=== PATIENT | male | born 1940 | race Caucasian/White ===

== ENCOUNTER → 2020-07-15 07:45 | Outpatient (CLI) | payer MEDICARE, SELFPAY ==
--- NOTE | ~2020-07-15 | CT_ITS ---
EXAMINATION: CT abdomen pelvis wo con DATE: 07/15/2020 08:15 INDICATION: Bilateral kidney stones. Bilateral flank pain. TECHNIQUE: Computed tomography (CT) of the abdomen and pelvis was performed without intravenous contr ast. Automated exposure control and iterative reconstruction technique were employed. The dose-length product was 826.72 mGy-cm. COMPARISON: CT abdomen and pelvis 03/27/2019 FINDINGS: The visualized portions of the lung bases demonstrate mild atelectasis. No pleural effusion . The heart size is normal. There are coronary artery calcifications. No pericardial effusion. The li oh is normal. There are gallstones in the gallbladder, which is distended. The spleen, pancreas, adr enal glands, and right kidney are normal. There is a 10 mm stone in left kidney. The ureters are norm al. The prostate is moderately enlarged. There are no dilated loops of bowel. The appendix is normal. There are no pathologically enlarged lymph nodes. There is no free intraperitoneal fluid. There is a 3.1 cm fusiform infrarenal aortic aneurysm. There are no pathologically enlarged lymph nodes. There is no free intraperitoneal fluid. There is severe lower lumbar spondylosis. IMPRESSION: 1. 10 mm nonobstructing left kidney stone. 2. 3.1 cm fusiform infrarenal aortic aneurysm. 3. Cholelithiasis. Gallbladder wall distention may be secondary to fasting. Correlate with history an d physical exam to exclude acute cholecystitis. Reviewed, dictated and finalized at location A. ONAL CARER IMPRESSION: 1. 10 mm nonobstructing left kidney stone. 2. 3.1 cm fusiform infrarenal aortic aneurysm. 3. Cholelithiasis. Gallbladder wall distention may be secondary to fasting. Cor relate with history and physical exam to exclude acute cholecystitis.
== END ==
PROVIDERS: PCP Pediatrics; Visit Provider Urology
DX: N20.0 Calculus of kidney (principal); K80.20 Calculus of gallbladder without cholecystitis without obstruction; I71.9 Aortic aneurysm of unspecified site, without rupture; N40.0 Benign prostatic hyperplasia without lower urinary tract symptoms
CPT/HCPCS: 74176

== ENCOUNTER → 2020-09-07 09:03 | Outpatient (CLI) | payer MEDICARE, SELFPAY ==
--- NOTE | ~2020-09-07 | MR_ITS ---
EXAMINATION: MR lumbar spine wo con EXAM DATE: 09/07/2020 09:50 INDICATION: Lumbar radiculopathy. Low back pain, bilateral leg pain, symptoms 3 weeks. TECHNIQUE: Multi-sequential, multiplanar MR images of the lumbar spine were obtained without contrast . Sagittal T1, T2, T2 fat saturation images. Axial T2 weighted images. There is no prior study for comparison. FINDINGS: There is bone marrow edema at the anterior aspects of the L2 and L3 vertebral bodies along this endplate, likely acute bone contusions. There is moderate to severe disc disease L5-S1, mild L2- L5. The conus medullaris terminates at the L1/2 level and has normal signal intensity and morphology. There is 3 mm retrolisthesis L5 on S1. Paraspinal soft tissue is unremarkable. Level by level evaluation: T12-L1: Disc does not extend beyond the endplate margin. Facet arthropathy: None. Neural foraminal stenosis: No stenosis. Central canal stenosis: No stenosis. L1-L2: Disc does not extend beyond the endplate margin. Facet arthropathy: Mild. Neural foraminal stenosis: No stenosis. Central canal stenosis: No stenosis. L2-L3: There is a mild to moderate diffuse disc bulge. Facet arthropathy: Mild to moderate. Neural foraminal stenosis: Mild to moderate bilateral. Central canal stenosis: Mild. L3-L4: There is a mild diffuse disc bulge. Facet arthropathy: Mild to moderate. Neural foraminal stenosis: Mild to moderate bilateral. Central canal stenosis: Mild. L4-L5: There is a mild to moderate diffuse disc bulge. Facet arthropathy: Moderate bilateral. Neural foraminal stenosis: Moderate bilateral. Central canal stenosis: Mild to moderate. Possible laminotomy defect. L5-S1: There is a moderate diffuse disc bulge. Facet arthropathy: Moderate. Neural foraminal stenosis: Moderate to severe bilateral. Central canal stenosis: Mild to moderate. IMPRESSION: 1. L5-S1 moderate to severe disc disease and bilateral neural foraminal stenosis. 2. Less spondylosis other lumbar levels. 3. Edema at the L2-3 endplates anteriorly probably bone contusions. Thoracolumbar vertebral body hei ghts are relatively well-maintained. Reviewed, dictated and finalized at location A. IMPRESSION: 1. L5-S1 moderate to severe disc disease and bilateral neural foraminal stenos is. 2. Less spondylosis other lumbar levels. 3. Edema at the L2-3 endplates anteriorly probably bone contusions. Thoracolum bar vertebral body heights are relatively well-maintained.
== END ==
PROVIDERS: Visit Provider Nurse Practitioner Adult Health
DX: M54.16 Radiculopathy, lumbar region (principal); M51.37 Other intervertebral disc degeneration, lumbosacral region
CPT/HCPCS: 72148

== ENCOUNTER → 2020-10-24 01:51 | Outpatient (CLI) | payer MEDICARE, SELFPAY ==
[2020-10-25 14:53] LABS: SARS-CoV-2 RNA PCR Negative
== END ==
PROVIDERS: PCP Pediatrics; Visit Provider Surgery
DX: Z01.812 Encounter for preprocedural laboratory examination (principal); Z20.822 Contact with and (suspected) exposure to COVID-19
CPT/HCPCS: C9803; U0003; U0005

== ENCOUNTER 2020-10-24 08:52 | Outpatient (CLI) | payer MEDICARE, SELFPAY ==
--- NOTE | 2020-10-24 09:13 | ECG_ITS ---
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
[2020-10-24 09:26] LABS: Alanine Aminotransferase 20 U/L (4-50); Alkaline Phosphatase 66 U/L (38-126); Amylase 101 U/L (30-110); Aspartate Amino Transferase 28 U/L (17-59); Bilirubin,Total 1.1 mg/dL (0.2-1.3); Lipase 160 U/L (23-300)
== END 2020-10-24 08:53 | disposition home or self-care (01) ==
PROVIDERS: PCP Pediatrics; Referring Provider Anesthesiology; Visit Provider Surgery
DX: Z01.818 Encounter for other preprocedural examination (principal); K85.10 Biliary acute pancreatitis without necrosis or infection; I10 Essential (primary) hypertension; R94.31 Abnormal electrocardiogram [ECG] [EKG]
CPT/HCPCS: 36415; 80076; 82150; 83690; 93005; C9803; U0003; U0005

== ENCOUNTER 2020-10-28 00:40 | Day surgery (SDC) | payer MEDICARE, SELFPAY ==
[2020-10-14 14:22] VITALS: BMI 29.6
[2020-10-28] VITALS (8 sets, daily range): BP systolic 143–174; BP diastolic 61–80; PULSE 35–64; RESP 10–16; TEMP 36.3; O2SAT 98–100
--- NOTE | ~2020-10-28 | XR_ITS ---
EXAMINATION: XR cholangiogram surg 1st inj DATE: 10/28/2020 08:52 INDICATION: Cholelithiasis. TECHNIQUE: 329 fluoroscopic images of the right upper quadrant were obtained during intraoperative ch olangiography performed by the surgeon. I was not present in the operating room. Fluoroscopy exposure time was 115 seconds. COMPARISON: CT abdomen and pelvis 07/15/2020 FINDINGS: There is a catheter in the cystic duct. Contrast opacifies the biliary tree and passes to t he duodenum. There is no choledocholithiasis. IMPRESSION: 1. No choledocholithiasis. Reviewed, dictated and finalized at location B. IMPRESSION: 1. No choledocholithiasis.
[2020-10-28] MEDS: KETOROLAC 15 MG/ML VIAL (*BKC) IV PUSH (06:38)
[2020-10-28] MEDS: ACETAMINOPHEN 500 MG TABLET 1000 MG PO (06:38)
[2020-10-28 06:47] LABS: Glucose Point of Care 102 (65-105)
--- NOTE | 2020-10-28 06:49 | WPDANESEPPF ---
Anes - Initial Pre Proc Eval Procedure: Operation Date: 10/28/20 07:30 Proposed Procedures p Laparoscopic Cholecystectomy With Intraoperative Cholangiogram - Arias Christianson MD Date/Time: 10/28/20 06:49 Surgeon: Arias Christianson MD Pre Op Diagnosis: acute biliary pancreatitis Patient Data Age: 80 Gender: M Height: 6 ft Weight: 99 kg Allergies Allergy/AdvReac Type Severity Reaction Status Date / Time amoxicillin Allergy Severe HIVES Verified 10/28/20 06:08 ticlopidine Allergy Severe SWELLING-TH Verified 10/28/20 06:08 ROAT Sulfa (Sulfonamide Allergy Intermediate HIVES Verified 10/28/20 06:08 Antibiotics) Bumble Bee Allergy Severe BREATHING Uncoded 10/28/20 06:08 DIFFICULTY Home Medications Medication Instructions Recorded Confirmed Type atorvastatin 40 mg tablet 40 mg PO DAILY 09/29/20 10/28/20 History clopidogrel 75 mg tablet 75 mg PO DAILY 09/29/20 10/28/20 History finasteride 5 mg tablet 5 mg PO DAILY 09/29/20 10/28/20 History glipizide 2.5 mg tablet, extended 5 mg PO QAM 09/29/20 10/28/20 History release 24 hr lisinopril 40 mg tablet 40 mg PO HS 09/29/20 10/28/20 History mecobalamin (vitamin B12) 10,000 10,000 mcg SUBCUT MONTHLY 09/29/20 10/28/20 History mcg solution for injection spironolactone 25 mg tablet 12.5 mg PO QAM 09/29/20 10/28/20 History testosterone cypionate 200 mg/mL 200 mg IM ONCE 09/29/20 10/14/20 History intramuscular oil Laboratory Tests 10/28/20 06:34 POC Capillary Glucose 102 mg/dl mg/dl (65-105) Patient hx anesthesia problems: none Family hx anesthesia problems: none PMFSH Past Medical History Medical History CKD (chronic kidney disease) Diabetes GERD (gastroesophageal reflux disease) Heart attack High cholesterol History of blood clots Hypertension Kidney stones MEIR on CPAP Stroke Surgical History Surgical History (Updated 10/05/20 @ 15:06 by Jyoti Cho) H/O hand surgery S/p bilateral shoulder joint replacement S/P cardiac cath S/P coronary artery bypass graft x 5 Status post bilateral knee replacements Family History Family History Father Gastric cancer Mother Carbon monoxide poisoning Sibling Carbon monoxide poisoning Sibling Pelvic cancer Unknown Diabetes mellitus Son Heart disease Cancer Social History Social History Smoking packs per day: 2 Smoking cigarettes per day: 40.0 Years smoked: 40 Smoking pack-years: 80.00 Smoking status: Former smoker Tobacco type: cigarettes Smoking end date: 12/17/96 Alcohol intake: current Substance use: never Living arrangements: with family Additional living arrangements comments: Spiritual care concerns: No Anes - Eval Final PreProcedure Day of Procedure 10/28/20 06:49 Patient weight: overweight Heart: regular rate and rhythm Lungs: decreased breath sounds Airway: Mallampati scale class II Neurological: alert and oriented Last oral intake: >/= 8 hours ASA classification: III Emergent: no Anesthetic plan: proceed Anesthesia type and monitoring: general ETT and standard monitoring Informed Consent: The patient's anesthetic plan and its attendant risks and benefits were discussed with the patient/family/POA. Questions were solicited and answers provided to the satisfaction of the patient/family/POA.
[2020-10-28] MEDS: LACTATED RINGERS 1,000 ML 30 ML IV CONT ×2 (06:53→09:19)
--- NOTE | 2020-10-28 07:03 | WPDHPUPDATE1 ---
History and Physical Update Update Date/Time: 10/28/20 07:03 History and Physical has been reviewed, including an updated exam of the patient. There are NO changes in the patient's condition. Risks, benefits, and alternatives have been discussed and questions answered. Patient agrees to proceed with procedure.
[2020-10-28] MEDS: CLINDAMYCIN 900 MG/D5W 50 ML 900 MG/50 ML PIGGYBACK 50 MG IVPB (07:24)
[2020-10-28] MEDS: BUPIVACAINE/EPINEPHRINE 0.5% 30 ML VIAL INFILTRATE (07:53)
[2020-10-28] MEDS: HEMOSTATIC MATRIX (SURGIFLO with THROMBIN) KIT 1 KIT XX ×2 (08:27→08:57)
[2020-10-28] MEDS: fentaNYL CITRATE INJ (*CRX) 100 MCG/2 ML VIAL 25 MCG IV PUSH ×4 (09:33→10:03)
[2020-10-28 09:36] LABS: Glucose Point of Care 153 (65-105)
--- NOTE | 2020-10-28 09:44 | PM.PROC ---
Procedure Note - Detailed Date of procedure: 10/28/20 Pre-op diagnosis: biliary pancreatitis Biliary pancreatitis Post-op diagnosis: other (Biliary pancreatitis, chronic cholecystitis with gallstones) Procedure performed: Laparoscopic cholecystectomy with intraoperative cholangiogram. Description of procedure: The patient was taken to surgery and induced into general anesthesia. The abdomen was prepped and draped. Trocars were placed in the usual fashion using 0.5% Marcaine with epinephrine and applied Medical optical trocars. A 5 millimeter camera was used. We turned our attention to the right upper quadrant an were met with tenacious adhesions of the omentum to the undersurface of the liver. Usually these sweep down fairly easily but these were quite extensive and dense. Using cautery and scissor dissection, I dissected these adhesions from the liver edge and the under surface of the liver. There was some bleeding from the liver surface as well as from the adhesions. The patient was taking clopidogrel gel and even though he had stopped on the 4th, this still has an anti-platelet effect contributing to additional oozing of blood. The dissection of these omental adhesions was extensive. Once more the gallbladder was exposed, it was evident that the distal portion of the stomach was also adherent to the gallbladder. These adhesions between the stomach and the gallbladder were likewise taken down sharply with some cautery as well. The gallbladder was stuck to the medial segment of the left lobe of the liver. These adhesions had to be taken down as well. The infundibulum of the gallbladder was exposed. It was retracted anterosuperiorly. We exposed the cholecystohepatic triangle and dissected out the cystic duct and cystic artery. In dissecting the cholecystohepatic triangle, some bleeding occurred from a branch off of the right hepatic artery that seemed to be heading into the medial segment of the left lobe of the liver. Pressure was held but this branch continued to have bleeding and had to be clipped. This did not involve the main right hepatic artery as it continued on into the right lobe of the liver. The gallbladder was dissected off the liver at its lower 3rd. Critical view was achieved. This was difficult dissection as well with oozing for the same reasons as the other adhesions. Once critical view had been achieved, I suctioned away any residual blood and clot. There was still diffuse oozing both from the omentum and the liver surface. I used Surgiflo and placed this over the oozing surfaces. I used a Ray-Katt sponge to spread out the Surgiflo so that would cover the raw surface areas. This worked well and achieved a good degree of hemostasis. The cystic artery was securely clipped and divided. Cystic duct was dissected through most of its length. The cystic duct was clipped at the distal gallbladder. A small incision was made in the upper cystic duct with cystic duct scissors. The cholangiogram catheter was passed into the cystic duct. We then brought the C-arm fluoroscopy into the field. Intraoperative cholangiograms were done with C-arm fluoroscopy. This showed a normal cholangiogram with no evidence of common bile duct filling defects. There was prompt duodenal filling and no evidence of common bile duct injury. The cholangiogram catheter was removed from the cystic duct. The cystic duct was then securely clipped and divided. The gallbladder was then dissected free of its peritoneal attachments to the liver. Once completely freed, it was placed in an Endo-Catch bag and retrieved through the 10 11 epigastric trocar. The epigastric trocar was then replaced. I then irrigated and suction the right upper quadrant. There was still oozing of blood from different areas. I used cautery and achieved good hemostasis. I felt that another dose of Surgiflo would also be helpful as the patient would need to be going back on their clopidogre
[2020-10-28] MEDS: oxyCODONE HCL (*CRX) 5 MG TAB IR PO (10:48)
== END 2020-10-28 11:56 | disposition home or self-care (01) ==
PROVIDERS: PCP Pediatrics; Visit Provider Surgery
PROC: 0FT44ZZ Resection of Gallbladder, Percutaneous Endoscopic Approach (ICD-10-PCS; CPT 47562; principal; 2020-10-28 07:30)
DX: K85.10 Biliary acute pancreatitis without necrosis or infection (principal); K80.10 Calculus of gallbladder with chronic cholecystitis without obstruction; I12.9 Hypertensive chronic kidney disease with stage 1 through stage 4 chronic kidney disease, or unspecified chronic kidney disease; N18.9 Chronic kidney disease, unspecified; G47.33 Obstructive sleep apnea (adult) (pediatric); E11.22 Type 2 diabetes mellitus with diabetic chronic kidney disease; K21.9 Gastro-esophageal reflux disease without esophagitis; E78.00 Pure hypercholesterolemia, unspecified; Z86.73 Personal history of transient ischemic attack (TIA), and cerebral infarction without residual deficits; Z79.02 Long term (current) use of antithrombotics/antiplatelets; Z79.84 Long term (current) use of oral hypoglycemic drugs; Z95.1 Presence of aortocoronary bypass graft; Z87.891 Personal history of nicotine dependence
CPT/HCPCS: 47563; 36415; 74300; 82948; 86850; 86900; 86901; 88304; A9270; C1713; J1885; J2405; J2704; J2710; J3010; J7120; Q9966

== ENCOUNTER 2021-08-03 10:19 | Outpatient (CLI) | payer MEDICARE, SELFPAY ==
--- NOTE | ~2021-08-03 | XR_ITS ---
EXAMINATION: XR abdomen/kub 1V INDICATION: Bilateral kidney stones TECHNIQUE: Supine views of the abdomen were obtained on 2 radiographs. COMPARISON: 07/08/2019 FINDINGS: The previously identified right kidney stone is not seen. Evaluation is slightly limited by motion. There is a 10 mm stone of the left kidney lower pole. Phleboliths are noted in the pelvis. T he bowel gas pattern is unremarkable. The visualized lung bases are clear. There is mild osteoarthrit is of the hips. Cholecystectomy clips are noted. IMPRESSION: 1. Left nephrolithiasis. Reviewed, dictated and finalized at location A. E FURNISHINGS SUPERVISOR IMPRESSION: 1. Left nephrolithiasis.
== END 2021-08-03 10:20 | disposition home or self-care (01) ==
PROVIDERS: PCP Pediatrics; Visit Provider Urology
DX: N20.0 Calculus of kidney (principal)
CPT/HCPCS: 74018

== ENCOUNTER 2022-03-09 15:21 | Outpatient (CLI) | payer MEDICARE, SELFPAY ==
--- NOTE | ~2022-03-09 | XR_ITS ---
XR abdomen/kub 1V 03/09/2022 15:53 Indication: Bilateral kidney stones Procedure: KUB Comparison: Comparison to multiple prior studies sequentially, with oldest reviewed study dated 12/28. Findings: There are stones clustered in the lower pole of the left kidney. There are cholecystectomy clips. Bowel gas pattern is nonobstructive. There is advanced multilevel lumbar spondylosis with dext rocurvature of the lumbar spine. There is mild osteoarthritis of the hips. Small sclerotic lesion of the right pelvis, likely bone island. Impression: 1: Left nephrolithiasis. Reviewed, dictated and finalized at location A. Impression: 1: Left nephrolithiasis.
== END 2022-03-09 15:22 | disposition home or self-care (01) ==
PROVIDERS: PCP Pediatrics; Visit Provider Urology
DX: N20.0 Calculus of kidney (principal); M16.0 Bilateral primary osteoarthritis of hip
CPT/HCPCS: 74018

== ENCOUNTER 2022-03-15 13:06 | Outpatient (CLI) | payer MEDICARE, SELFPAY ==
--- NOTE | ~2022-03-15 | CT_ITS ---
EXAMINATION: CT abdomen pelvis wo con DATE: 03/15/2022 13:45 INDICATION: Ureteral stone TECHNIQUE: Computed tomography (CT) of the abdomen and pelvis was performed without intravenous contr ast. The dose-length product was 426.60 mGy-cm. Automated exposure control and iterative reconstructi on technique were employed. COMPARISON: CT dated 07/15/2020 FINDINGS: Lung bases are unremarkable. There are calcified granulomas in the left lower lobe at the p leural surface. Heart size normal. There is thickening of the distal esophagus. There are cholecystec nicole clips. There are nonobstructing left renal stones. There are vascular calcifications in the righ t kidney. The liver, spleen, pancreas, adrenal glands are unremarkable. Nonobstructing bowel gas pattern. Focal infrarenal abdominal aortic aneurysm measures 3.4 cm. No lymphadenopathy. No abnormal pelvic masses or fluid collections. No ureteral stones or hydronephrosis. There is ankylosis of the sacroiliac join ts. There is moderate-severe lumbar spondylosis. IMPRESSION: 1. Nonobstructing left nephrolithiasis. 2: Saccular aneurysm of the infrarenal abdominal aorta measuring 3.4 cm maximum dimension. Reviewed, dictated and finalized at location B.
== END 2022-03-15 13:07 | disposition home or self-care (01) ==
PROVIDERS: PCP Pediatrics; Visit Provider Urology
DX: N20.1 Calculus of ureter (principal); M47.816 Spondylosis without myelopathy or radiculopathy, lumbar region
CPT/HCPCS: 74176

== ENCOUNTER 2022-03-21 16:11 | Outpatient (CLI) | payer MEDICARE, SELFPAY ==
--- NOTE | ~2022-03-21 | CT_ITS ---
EXAMINATION: CT pelvis wo con DATE: 03/21/2022 16:33 INDICATION: Left flank pain. TECHNIQUE: Computed tomography (CT) of the pelvis was performed without intravenous contrast. The dos e-length product was 608.65 mGy-cm. Automated exposure control and iterative reconstruction technique were employed. COMPARISON: CT dated 03/15/2022 FINDINGS: There are nonobstructing left renal stones, partially visualized. There is an infrarenal ab dominal aortic saccular aneurysm measuring 3.4 cm. Nonobstructive bowel gas pattern. Bladder wall is thickened, although not well distended. There is fecal impaction of the rectum and sigmoid colon. No free air or free fluid. No abnormal pelvic masses or fluid collections. Mild osteoarthritis of the hi ps. There is ankylosis of the sacroiliac joints. There is lower lumbar spondylosis. Mild osteoarthrit is of the hips. IMPRESSION: 1. Nonobstructing left nephrolithiasis, partially visualized. 2: Mild bladder wall thickening which may be due to underdistention or cystitis. Clinically correlate . 3: Infrarenal abdominal aortic aneurysm measuring 3.4 cm. Reviewed, dictated and finalized at location A. IMPRESSION: 1. Nonobstructing left nephrolithiasis, partially visualized. 2: Mild bladder wall thickening which may be due to underdistention or cystitis . Clinically correlate. 3: Infrarenal abdominal aortic aneurysm measuring 3.4 cm.
--- NOTE | ~2022-03-21 | CT_ITS ---
EXAMINATION: CT lumbar spine wo con DATE: 03/21/2022 16:32 INDICATION: LEFT FLANK PAIN PER PATIENT . TECHNIQUE: Computed tomography (CT) of the lumbar spine was performed without intravenous contrast. A utomated exposure control and iterative reconstruction technique were employed. The dose-length produ ct was 1165.10 mGy-cm. COMPARISON: CT abdomen and pelvis 03/15/2022. FINDINGS: 5 nonrib-bearing lumbar-type vertebral bodies. Pedicles intact. Normal vertebral body align ment. Vertebral body heights preserved. Multilevel disc space narrowing and marginal osteophytosis wi th multilevel bridging osteophytes. Vacuum phenomenon at L5-S1. Rudimentary disc at S1-2. Severe bila teral neural foraminal narrowing at L5-S1. Multilevel facet hypertrophy and sclerosis, with multileve l interspinous narrowing. Atherosclerotic calcifications. Partially visualized left nephrolith. IMPRESSION: No acute fracture or traumatic malalignment in the lumbar spine. Reviewed, dictated and finalized at location K.
== END 2022-03-21 16:12 | disposition home or self-care (01) ==
PROVIDERS: PCP Pediatrics; Visit Provider Urology
DX: N20.0 Calculus of kidney (principal); R10.9 Unspecified abdominal pain; I70.0 Atherosclerosis of aorta
CPT/HCPCS: 72131; 72192